=== PATIENT | male | born 1995 | race Caucasian/White ===

== ENCOUNTER 2020-04-16 23:14 | Emergency (ER) | payer OTHER ==
[~2020-04-16] VITALS: Ht 180.3 cm; Wt 101.2 kg
[~2020-04-16 23:14] MED LIST: CEPH500 PO; CYCL10 PO; EPIN.3I IM; METPRE4DP PO; NAPR500 PO
== END 2020-04-16 23:57 | disposition home or self-care (01) ==
LOC: ER 23:14
DX: S01.81XA Laceration without foreign body of other part of head, initial encounter (principal); F17.210 Nicotine dependence, cigarettes, uncomplicated; V57.5XXA Driver of pick-up truck or van injured in collision with fixed or stationary object in traffic accident, initial encounter; Y92.410 Unspecified street and highway as the place of occurrence of the external cause
CPT/HCPCS: 99283

== ENCOUNTER 2023-09-07 01:07 | Emergency (ER) | payer SELFPAY ==
[~2023-09-07] VITALS: Ht 177.8 cm; Wt 93.0 kg
[2023-09-07] MEDS ORDERED: HYDROmorphone HCl/Pf 1MG SYR IV ONE (03:30)
[2023-09-07] MEDS ORDERED: Acetaminophen 500 MG Tab PO ONE (03:35)
[2023-09-07] MEDS ORDERED: Silver Sulfadiazine 1% Cream 25 APPLIC/25 GM Tube TOP ONE (03:35)
[2023-09-07] MEDS ORDERED: Ketorolac Tromethamine 15mg Vial IV ONE (03:35)
[2023-09-07] MEDS ORDERED: Ondansetron HCl 2 MG / ML 2ML Vial IV ONE (03:35)
[2023-09-07] MEDS ORDERED: Lidocaine 2.5%/Prilocaine 2.5% Cream 5 GM TOP ONE (03:35)
[2023-09-07] MEDS ORDERED: SILVADENE20 G8 TOP (06:36)
[2023-09-07 07:18] VITALS: BP 124/85
== END 2023-09-07 07:07 | disposition home or self-care (01) ==
LOC: ER 01:07
DX: T24.201A Burn of second degree of unspecified site of right lower limb, except ankle and foot, initial encounter (principal); T23.261A Burn of second degree of back of right hand, initial encounter; T24.102A Burn of first degree of unspecified site of left lower limb, except ankle and foot, initial encounter; T23.102A Burn of first degree of left hand, unspecified site, initial encounter; T20.111A Burn of first degree of right ear [any part, except ear drum], initial encounter; T31.0 Burns involving less than 10% of body surface; X08.8XXA Exposure to other specified smoke, fire and flames, initial encounter; F17.200 Nicotine dependence, unspecified, uncomplicated
CPT/HCPCS: 16030; 96374-59; 96375-59; 99284-25; A9270; J1170; J1885; J2405